=== PATIENT | female | born 1980 | race Caucasian/White ===

== ENCOUNTER → 2016-07-10 | Day surgery (SDC) | payer OTHER ==
[2016-06-23 11:01] VITALS: Ht 167.6 cm; Wt 59.1 kg
[~2016-07-10] VITALS: Ht 167.6 cm; Wt 59.1 kg
[~2016-07-10] MED LIST: ATROPINE SULFATE 0.1 MG/ML 5ML SYR IV PRN; DEXAMETHASONE SOD INJ 4 MG/ML VIAL ONE; EpHEDrine SULFATE INJ 50 MG/ML AMP IV PRN; FENTANYL CITRATE INJ 50 MCG/1 ML 2 ML VIAL IV PRN; FENTANYL CITRATE INJ 50 MCG/1 ML 2 ML VIAL ONE; GLYCOPYRROLATE INJ 0.2 MG/ML VIAL ONE; IBUPROFEN 600 MG TAB PO PRN; KETOROLAC TROMETHAMINE 30 MG/ML VIAL IV. PRN; KETOROLAC TROMETHAMINE 30 MG/ML VIAL ONE; LIDOCAINE HCL 2% 2 ML VIAL (20MG/ML) ONE; MIDAZOLAM HCL 1 MG/ML 2ML VIAL ONE; NEOSTIGMINE METHYLSULFATE 5 MG/5 ML SYR ONE; ONDANSETRON INJ 2 MG/ML 2 ML VIAL IV PRN; ONDANSETRON INJ 2 MG/ML 2 ML VIAL ONE; OXYCODONE/ACETAMINOPHEN 5-325 TAB PO PRN; PROPOFOL IV EMULSION 10 MG/ML 20 ML VIAL IV ONE; ROCURONIUM BROMIDE 10 MG/ML 5 ML VIAL ONE; SODIUM CHLORIDE 0.9% 1000ML 1,000 ML IV SCH
[2016-07-10] MEDS: LACTATED RINGER'S 1000ML 1,000 ML IV SCH ×2 (06:50→08:35)
--- NOTE | 2016-07-10 07:05 | History & Physical Bridge - [place] ---
H&P Re-Evaluation Bridge Note: I have examined the patient, reviewed the History & Physical and in the interval since the performance of the History & Physical I have noted the following changes of clinical significance: No changes noted
--- NOTE | 2016-07-10 08:00 | [facility] Post Operative Brief Note ---
Immediate Operative Summary Operative Date Jul 10, 2016. Pre-Operative Diagnosis Encounter for Sterilization Post-Operative Diagnosis Same Procedure(s) Performed Laparoscopic bilateral Tubal Sterilization via Coagulation Surgeon Dr. Sarabia Hydraulic Dredge Operator Surgeon(s) Dr. Sharma Estimated Blood Loss 0 Findings normal uterus, tubes and ovaries bilaterally. nl liver edge. Fluids (cc crystalloids) 800 Specimens None Drains none Anesthesia general Complication(s) None Disposition Recovery Room / PACU
--- NOTE | 2016-07-10 08:02 | Discharge Instructions ---
Discharge Instructions Date of Service Jul 10, 2016. Admission Reason for Admission: Encounter For Contraceptive Management Discharge Discharge Diagnosis / Problem: status post surgery Discharge Goals Goal(s): Routine recovery after surgery Activity Recommendations Activity Limitations: as noted below . Instructions / Follow-Up Instructions / Follow-Up ACTIVITY RECOMMENDATIONS: * Rest the first 2-3 days. You should be back to your normal activity levels by day 3. * No heavy lifting for 2 weeks. * No intercourse, tampons or douching for 1-2 weeks. * You may shower the next day. * Do not drive anytime that you are taking narcotic pain medicines. RETURN TO SCHOOL/WORK: * May return to school or work after 2-3 days. DIET: Nausea may occur in the immediate post-operative period. If so, take clear liquids such as tea, bouillon, apple juice until all nausea has subsided, then resume usual diet. MEDICATIONS: Resume previous medications unless instructed otherwise by your surgeon. Ibuprofen 200mg 2-3 tablets every 4-6 hours as needed -- OR -- Aleve 2 tablets every 8-12 hours as needed for post-operative discomfort Medications are over the counter. Tylenol may be used if above medications are contraindicated or not preferred. Medication should be taken with food or milk. Do not take on an empty stomach. SPECIAL CARE INSTRUCTIONS: * Check temperature twice daily for one week. report any elevation over 101 degrees. * You may experience some vagina spotting and/or bleeding. This is normal for 1 -2 weeks and should not be heavier than a normal period. If it is unusual in amount, call your physician. * Post-operative discomfort may consist of a sore throat, a "bloated" feeling and pain in the shoulders. these are normal symptoms, which usually only last for 2-3 days. * Remove band-aids tomorrow and shower. There is no need to replace band-aids unless there is drainage or discomfort. FOLLOW UP VISIT: Call your doctor's office for a post-operative visit if needed. You do not need to see me back. Your tubal is immediately effective. You should call me if you are concerned about your incision or any other concerns. Current Hospital Diet Patient's current hospital diet: Discharge Diet Recommended Diet: Regular Diet Procedures Procedures Performed: Laparoscopic bilateral Tubal Sterilization via Coagulation Pending Studies Studies pending at discharge: no Medical Emergencies . Who to Call and When: Medical Emergencies: If at any time you feel your situation is an emergency, please call 911 immediately. . Non-Emergent Contact Non-Emergency issues call your: Tick Sewer . . "Provider Documentation" section prepared by Brit Sarabia. VTE Core Measure Inpt VTE Proph given/why not?: Treatment not indicated
--- NOTE | 2016-07-10 08:11 | Medical Student: [facility] ---
Immediate Operative Summary Operative Date Jul 10, 2016. Pre-Operative Diagnosis Encounter for sterilization Post-Operative Diagnosis Same Procedure(s) Performed Laparoscopic tubal ligation Surgeon Brit Sarabia MD Commercial Construction Superintendent Surgeon(s) Alvaro Sharma MD Estimated Blood Loss 0mL Findings Normal anatomy Fluids (cc crystalloids) 800mL Lactated Ringer's solution Specimens None Drains None Anesthesia General anesthesia with laryngeal mask airway Complication(s) None Disposition Recovery Room / PACU
--- NOTE | 2016-07-10 08:14 | Medical Student: [facility] ---
Immediate Operative Summary Operative Date Jul 10, 2016. Pre-Operative Diagnosis Encounter for sterilization Post-Operative Diagnosis same Procedure(s) Performed Bilateral Laparoscopic Tubal Ligation Surgeon Brit Sarabia MD Costumer Surgeon(s) Alvaro Sharma MD Estimated Blood Loss 0ml Findings Normal Anatomy Fluids (cc crystalloids) 800mL Lactated Ringers Specimens none Drains none Anesthesia General Anesthesia Complication(s) None Disposition Recovery Room / PACU
--- NOTE | 2016-07-10 08:36 | OPERATIVE REPORT ---
DATE OF OPERATION: 07/10/2016 PREOPERATIVE DIAGNOSIS: Desires sterilization. POSTOPERATIVE DIAGNOSIS: Same. PROCEDURE: Bilateral laparoscopic tubal coagulation. SURGEON: Dr. Brit Sarabia. UNIT RECEPTIONIST: Alvaro Sharma, PGY 2. ANESTHESIA: General. IV FLUIDS: 800 mL. ESTIMATED BLOOD LOSS: Zero mL. INDICATIONS: A 35-year-old 2, para 2, has completed her childbearing and desires permanent sterilization. She is aware of all control options and desires to proceed. FINDINGS: Normal uterus, tubes and ovaries bilaterally. Normal liver edge. DESCRIPTION OF PROCEDURE: The patient taken to the operating room and identified. After adequate general anesthesia was obtained, she was placed in the dorsal lithotomy position and prepped and draped in the usual sterile fashion. The bladder was drained of clear, yellow urine. A weighted speculum with anterior retractor used to visualize the cervix which was grasped in its anterior lip with an Allis clamp. An acorn uterine manipulator was gently placed through the cervical os and connected to the Allis clamp to allow for uterine manipulation. Attention was then turned to the patient's abdomen where an infraumbilical skin incision was made with a scalpel. The Veress needle was placed intraperitoneally with an opening pressure of 1 mmHg. A CO2 pneumoperitoneum was created. A 11 mm optical trocar was placed intraperitoneally and the patient was placed in steep Trendelenburg. The operative laparoscope was then used and a blunt probe was used to tease the bowel away from the planned operative sites. The right fallopian tube was followed to its fimbriated end and coagulated in approximately a 3 cm segment 2-3 cm from the right cornu. This was using a Kleppinger forceps with an impedance monitor. The left fallopian tube was identified in a similar fashion and coagulated in a similar fashion. The pelvis and abdomen were inspected with the findings noted above. At this point the procedure was terminated. The patient was returned to flat positioning and the CO2 gas was allowed to escape from the abdomen. The skin incision was reapproximated subcutaneously with the single interrupted suture of 0 Vicryl followed by subcuticular stitches of 4-0 Vicryl. The vaginal instruments were removed. The patient was returned to the supine position. She was awoken from anesthesia and transferred to the recovery room in stable condition. All sponge, lap and needle counts were correct x2. I attest to the content of the Intraoperative Record and any orders documented therein. Any exceptions are noted below. MTDD
[2016-07-10 08:51] VITALS: TEMP 36.3
[2016-07-10 09:18] VITALS: BP 99/62; PULSE 47; O2SAT 99
--- NOTE | 2016-07-10 09:23 | Anesthesia Progress Nt - [facility] ---
Anesthesia Post Op Note Date & Time Jul 10, 2016 at 09:23 Vital Signs Pain Intensity: 4 Vital Signs Past 12 Hours Date Time Temp Pulse Resp B/P Pulse Ox O2 Delivery O2 Flow Rate FiO2 07/10/16 09:18 47 16 99/62 99 Room Air 07/10/16 08:51 36.3 51 16 109/67 99 Room Air 07/10/16 08:46 46 7 109/74 97 07/10/16 08:46 46 7 07/10/16 08:42 36.3 49 12 109/48 97 Room Air 07/10/16 08:41 52 17 07/10/16 08:41 52 17 97/79 98 07/10/16 08:36 49 7 108/74 95 07/10/16 08:36 50 7 07/10/16 08:31 47 4 07/10/16 08:31 47 4 111/77 98 07/10/16 08:26 46 15 113/80 100 07/10/16 08:26 47 15 07/10/16 08:21 52 13 116/83 100 07/10/16 08:21 52 13 07/10/16 08:16 56 15 07/10/16 08:16 56 15 118/84 100 07/10/16 08:11 60 17 07/10/16 08:11 60 17 115/84 100 07/10/16 08:07 131/96 07/10/16 08:06 87 07/10/16 08:06 87 99 07/10/16 08:06 36.6 85 16 131/96 100 Diffusion Mask 07/10/16 06:36 36.6 72 16 115/80 99 Room Air Notes Mental Status: alert / awake / arousable, participated in evaluation Pt Amnestic to Procedure: Yes Nausea / Vomiting: adequately controlled Pain: adequately controlled Airway Patency, RR, SpO2: stable & adequate BP & HR: stable & adequate Hydration State: stable & adequate Anesthetic Complications: no major complications apparent
== END | disposition home or self-care (01) ==
LOC: X.SURG 06:28
PROVIDERS: ATTEND Obstetrics & Gynecology
DX: Z30.2 Encounter for sterilization (principal)

== ENCOUNTER → 2016-12-18 | Outpatient (CLI) | payer OTHER | END | disposition home or self-care (01) | LOC: C.LABSPEC 13:29 | PROVIDERS: ATTEND Physician Assistant | DX: L29.8 Other pruritus (principal) ==

== ENCOUNTER 2017-05-30 18:04 | Emergency (ER) | payer OTHER ==
[2017-05-30 18:09] VITALS: TEMP 36.8; Ht 165.1 cm
[2017-05-30] MEDS ORDERED: OXYCODONE HCL IR 5 MG TAB (IMMEDIATE RELEASE) PO STA (18:46)
[2017-05-30] MEDS ORDERED: OXYC1TAB3 PO (18:50)
--- NOTE | 2017-05-30 18:52 | EMERGENCY ROOM VISIT NOTE ---
ED Visit Note First contact with patient: 18:11 CHIEF COMPLAINT: Right ankle injury 90 minutes ago HISTORY OF PRESENT ILLNESS: Patient is a healthy 36-year-old white female who presents to the Emergency Department today accompanied by family for evaluation of a right ankle injury that occurred about 90 minutes ago while sled riding. Patient states that she went over a jump, and when she came down, her leg was underneath the sled and she landed on it. She had immediate onset of pain in her right ankle. She was pulled out on the sled, and has not put any weight on the ankle since the injury. She went home, elevated the ankle, tried to apply ice which she could not tolerate, and took ibuprofen and tramadol. She rates her pain a 9/10. She denies any foot or knee pain. No numbness or weakness of the foot. REVIEW OF SYSTEMS: Review of systems as per HPI. All other systems reviewed were negative. At least 6 systems reviewed. PMH: Electronic medical records are reviewed and summarized as above/below. See Problem List. SOCIAL HISTORY: Patient lives at home with her children. Employed. Nonsmoker. PHYSICAL EXAM: Vital Signs: Reviewed Nurses' notes. MENTAL STATUS: Well- appearing 36-year-old white female who is awake and alert and seated in a wheelchair. MUSCULOSKELETAL: Examination of the right ankle show marked soft tissue swelling , with palpable ankle joint effusion. She is tender over the entire ankle both medially and laterally. The range of motion is limited because of the pain and swelling. No deformity. There is no pain over the proximal fibular head or the fifth metatarsal. SKIN: Normal. NEUROVASCULAR: Sensation intact to pain and light touch, foot is warm and well-perfused, dorsalis pedis pulse is palpable. EMERGENCY DEPARTMENT COURSE: The patient was seen and assessed as above. Her old records were reviewed. Right ankle x-rays were obtained and consistent with a trimalleolar fracture with mortise widening. Patient was medicated with oxycodone 10 mg orally. She is placed in a short leg posterior and sugar tong Ortho-Glass splint. She was fitted with crutches and instructed on a nonweight bearing gait. She was referred to [facility] for further care and evaluation. Differential diagnosis included fracture, sprain, dislocation, contusion, among others. Medication reconciliation: I attest that I have personally reviewed the patient' s current medication list. Blood pressure screening : Patient was found to have normal blood pressure on screening and does not require follow-up. Patient was reviewed in the [facility] Prescription Drug Monitoring Program, and there were no red flags noted. RIGHT ANKLE 3 VIEWS HISTORY: Right ankle pain. COMPARISON: None. FINDINGS: There is no oblique distal fibular fracture was demonstrated up to 6 mm of posterior displacement. Diffuse soft tissue swelling. There is also a fracture through the medial malleolus which demonstrates up to 4 mm of distraction and 3 mm of medial displacement. There are slight widening of the ankle mortise. There appears to be in a nondisplaced fracture through the posterior malleolus. No radiopaque foreign bodies. IMPRESSION: Trimalleolar right ankle fracture as described above with mild widening of the ankle mortise. Problem List Medical Problems: (1) Intrauterine Status: Resolved (2) Vaginal delivery Status: Resolved Surgical Problems: (1) H/O tubal ligation Status: Resolved (2) H/O wisdom tooth extraction Status: Resolved Current/Historical Medications Scheduled PRN Oxycodone Ir (Roxicodone Ir), 1-2 TAB PO Q4H PRN for Severe Pain Allergies Coded Allergies: No Known Allergies (Verified , 05/30/17) Vital Signs Date Time Temp Pulse Resp B/P (MAP) Pulse Ox O2 Delivery O2 Flow Rate FiO2 05/30/17 19:11 78 20 126/73 100 05/30/17 18:09 36.8 90 20 114/63 97 Room Air Medications Administered Medications (Trade) Dose Ordered Sig/Sindy Route Start Time Stop Time Status Last Admin Dose Admin Oxycodone HCl (Roxicodone Immediate Rel Tab) 10 mg NOW STAT PO 05/30/17 18:46 05/30/17 18:52 DC 05/30/17 18:52 10 MG Departure Information Impression Primary Impression: Trimalleolar fracture of right ankle Prescriptions Oxycodone Ir (Roxicodone Ir) 5 Mg Tab 1-2 TAB PO Q4H Y for Severe Pain, #30 TAB For Initial Treatment Prov: Aparna Starr PA 05/30/17 Referrals Lb Garcia M.D. (PCP) Rogerio Contreras, DO Patient Instructions [facility] Additional Instructions DO NOT drive, drink alcohol, operate machinery, or perform dangerous activities today. You were given medications in the ER that can affect your ability to safely function or operate a vehicle. Oxycodone (OxyIR) 5mg: Take 1-2 pills every four hours for breakthrough pain. Avoid alcohol, operating machinery or dangerous equipment, working on ladders or roofs, DRIVING, or situations where being under the influence may be dangerous. It is recommended to use an hjvs-zfw-ytyihuo stool softener such as Colace, 100mg twice daily while taking this medication to avoid constipation. Ibuprofen(Motrin, Advil) may be used for fever or pain. Use 600mg every six hours as needed. Take with food. Avoid using more than 2400mg in a 24 hour period. Do not use 2400mg per day for more than three consecutive days without physician direction. Prolonged inappropriate use can lead to stomach upset or ulcers. This medication can be taken if you need to drive, work, or perform activities which may be dangerous when taking narcotic pain medication. (AND/OR) Acetaminophen(Tylenol) may be used for fever or pain. Use 1000mg every six hours as needed. Avoid using more than 3000mg in a 24 hour period. This medication can be taken if you need to drive, work, or perform activities which may be dangerous when taking narcotic pain medication. Ice compresses for 20 minutes at a time four times daily for 2-3 days. Use the crutches as instructed with no weight on the right ankle. Rest and elevate your injury. Prop your right ankle on at least 2 pillows above the level of the heart to help reduce pain and swelling. Do not get the splint wet. If your splint feels excessively tight, you have worsening pain, develop numbness or tingling, or your digits appear blue, loosen the anderson wrap. Then reapply the anderson wrap gently without removing the splint. If your symptoms are not quickly relieved return to the ER for re- evaluation. Continue current medications. Return to the ER immediately for any numbness, tingling, severe pain, extreme swelling in the extremity or as needed. Call [facility] tomorrow to arrange follow up for your injury. Problem Qualifiers Primary Impression: Trimalleolar fracture of right ankle Encounter type: initial encounter Fracture type: closed Qualified Codes: S82.851A - Displaced trimalleolar fracture of right lower leg, initial encounter for closed fracture
[2017-05-30 19:11] VITALS: BP 126/73; PULSE 78; O2SAT 100
--- NOTE | 2017-05-30 19:23 | DIAGNOSTIC IMAGING REPORT ---
RIGHT ANKLE 3 VIEWS HISTORY: Right ankle pain. COMPARISON: None. FINDINGS: There is no oblique distal fibular fracture was demonstrated up to 6 mm of posterior displacement. Diffuse soft tissue swelling. There is also a fracture through the medial malleolus which demonstrates up to 4 mm of distraction and 3 mm of medial displacement. There are slight widening of the ankle mortise. There appears to be in a nondisplaced fracture through the posterior malleolus. No radiopaque foreign bodies. IMPRESSION: Trimalleolar right ankle fracture as described above with mild widening of the ankle mortise. Electronically signed by: Damian Lara M.D. 05/30/2017 7:21 PM Dictated Date/Time: 05/30/2017 7:19 PM
[2017-05-31] MEDS ORDERED: IBUP-1450 PO (13:21)
[2017-05-31] MEDS ORDERED: MULT-506 PO (13:21)
[2017-05-31] MEDS ORDERED: OXYC15TA89 PO (13:21)
== END 2017-05-30 19:20 | disposition home or self-care (01) ==
LOC: C.EDB 18:05 → C.EDD 19:20
DX: S82.851A Displaced trimalleolar fracture of right lower leg, initial encounter for closed fracture (principal); W20.8XXA Other cause of strike by thrown, projected or falling object, initial encounter; Y93.23 Activity, snow (alpine) (downhill) skiing, snowboarding, sledding, tobogganing and snow tubing

== ENCOUNTER 2017-06-01 12:00 | Day surgery (SDC) | payer OTHER ==
[2017-05-31 13:22] VITALS: BMI 22.0
--- NOTE | 2017-05-31 21:49 | HISTORY & PHYSICAL EXAMINATION ---
DATE OF ADMISSION: 06/01/2017 CHIEF COMPLAINT: Right ankle injury. HISTORY OF PRESENT ILLNESS: The patient is a 36-year-old very active, healthy female who sustained an injury to her ankle last evening. She was out sled riding went over a jump and landed on her right ankle. He had acute onset of pain and could not walk on it afterwards. She was brought to the Emergency Room. X-rays revealed a right trimalleolar ankle fracture. She was splinted and referred to our clinic this morning. No other complaints. She describes global ankle pain. No history of ankle problems in the past. PAST MEDICAL HISTORY: Noncontributory. PAST SURGICAL HISTORY: Include: 1. Tarpley teeth extraction. 2. Tubal ligation. ALLERGIES: None. CURRENT MEDICATIONS: Oxycodone. SOCIAL HISTORY: A 36-year-old female. She is . Two children. No alcohol intake. Does not smoke. FAMILY HISTORY: Noncontributory. REVIEW OF SYSTEMS: Negative for diabetes, neurologic problems, vascular problems or bleeding disorders. No head injury. No loss of consciousness, no neck pain, no back pain. PHYSICAL EXAMINATION: GENERAL: Reveals a healthy, pleasant middle-aged female. Looks to be in excellent health. HEENT: Benign. NECK: Supple. No lymphadenopathy. LUNGS: Clear to auscultation. HEART: Has a regular rate and rhythm. ABDOMEN: Soft, nontender, nondistended. EXTREMITIES: Grossly neurovascularly intact except as follows: Examination of the right ankle with the splint removed reveals some moderate swelling. Her ankle looks well aligned. There is no fracture blisters. She can dorsiflex and plantarflex her toes appropriately. She has brisk refill. X-RAYS: X-ray of the ankle were reviewed. She has a right trimalleolar ankle fracture. Minimal displacement of the talus. There is some slight shifting. The medial malleolus is displaced significantly. ASSESSMENT: A 36-year-old female with a right trimalleolar ankle fracture. This is certainly something best treated surgically. PLAN: We talked about treatment options. We are going to proceed with ORIF of right ankle fracture. The risks and benefits of this procedure were explained to the patient including but not limited to DVT, PE, , infection, neurological injury, vascular injury, bleeding problems, pain, limited range of motion, stiffness, nonunion, malunion progressive arthritis, need for further surgery in the future and hardware removal. The patient understands and desires to proceed. Informed consent was obtained.
[~2017-06-01] VITALS: Ht 165.1 cm; Wt 61.4 kg
[~2017-06-01 12:00] MED LIST changes: -ATROPINE SULFATE 0.1 MG/ML 5ML SYR IV PRN; +CEFAZOLIN IV 2,000 MG in SYRINGE 0 ML IV SCH; -DEXAMETHASONE SOD INJ 4 MG/ML VIAL ONE; -EpHEDrine SULFATE INJ 50 MG/ML AMP IV PRN; -FENTANYL CITRATE INJ 50 MCG/1 ML 2 ML VIAL IV PRN; -FENTANYL CITRATE INJ 50 MCG/1 ML 2 ML VIAL ONE; -GLYCOPYRROLATE INJ 0.2 MG/ML VIAL ONE; +IBUP-1450 PO; -IBUPROFEN 600 MG TAB PO PRN; -KETOROLAC TROMETHAMINE 30 MG/ML VIAL IV. PRN; -KETOROLAC TROMETHAMINE 30 MG/ML VIAL ONE; +LACTATED RINGER'S 1000ML 1,000 ML IV SCH; -LIDOCAINE HCL 2% 2 ML VIAL (20MG/ML) ONE; -MIDAZOLAM HCL 1 MG/ML 2ML VIAL ONE; +MULT-506 PO; -NEOSTIGMINE METHYLSULFATE 5 MG/5 ML SYR ONE; +NSS 1000ML IV SCH; -ONDANSETRON INJ 2 MG/ML 2 ML VIAL IV PRN; -ONDANSETRON INJ 2 MG/ML 2 ML VIAL ONE; +OXYC15TA89 PO; -OXYCODONE/ACETAMINOPHEN 5-325 TAB PO PRN; -PROPOFOL IV EMULSION 10 MG/ML 20 ML VIAL IV ONE; -ROCURONIUM BROMIDE 10 MG/ML 5 ML VIAL ONE; -SODIUM CHLORIDE 0.9% 1000ML 1,000 ML IV SCH
[2017-06-01 12:32] VITALS: BP 112/71; PULSE 73; TEMP 37.1; O2SAT 98; Ht 165.1 cm; Wt 61.4 kg
[2017-06-01] MEDS ORDERED: FENTANYL CITRATE INJ 50 MCG/1 ML 2 ML VIAL ONE (12:55)
[2017-06-01] MEDS ORDERED: MIDAZOLAM HCL 1 MG/ML 2ML VIAL ONE (12:55)
[2017-06-01] MEDS ORDERED: CEFAZOLIN SOD 1000MG/7.5 ML IV PUSH IV ONE ×2 (12:59→17:34)
[2017-06-01] MEDS ORDERED: DEXAMETHASONE SOD INJ 4 MG/ML VIAL ONE (13:20)
[2017-06-01] MEDS ORDERED: LIDOCAINE HCL 2% 2 ML VIAL (20MG/ML) ONE (13:20)
[2017-06-01] MEDS ORDERED: ONDANSETRON INJ 2 MG/ML 2 ML VIAL ONE (13:20)
[2017-06-01] MEDS ORDERED: PROPOFOL IV EMULSION 10 MG/ML 20 ML VIAL IV ONE (13:20)
[2017-06-01] MEDS ORDERED: BUPIVACAINE 0.5 % 5 MG/1 ML PF 10ML VIAL ONE (13:58)
[2017-06-01] MEDS ORDERED: BUPIVACAINE 0.25% 30 ML VIAL ONE (13:59)
[2017-06-01] MEDS ORDERED: BUPIVACAINE/EPINEPHRINE 0.5% MPF 1:200,000 30 ML VIAL ONE (14:12)
[2017-06-01] MEDS ORDERED: BACITRACIN 50000 UNIT VIAL ONE (14:12)
[2017-06-01] MEDS ORDERED: HYDROmorphone INJ 1 MG/ML SYR IV PRN (14:45)
[2017-06-01] MEDS ORDERED: EpHEDrine SULFATE INJ 50 MG/ML AMP IV PRN (14:45)
[2017-06-01] MEDS ORDERED: ATROPINE SULFATE 0.1 MG/ML 5ML SYR IV PRN (14:45)
[2017-06-01] MEDS ORDERED: FENTANYL CITRATE INJ 50 MCG/1 ML 2 ML VIAL IV PRN (14:45)
[2017-06-01] MEDS ORDERED: ONDANSETRON INJ 2 MG/ML 2 ML VIAL IV PRN (14:45)
[2017-06-01] MEDS ORDERED: PROMETHAZINE HCL INJ 12.5 MG in SODIUM CHLORIDE 0.9% 50ML 50 ML IV PRN (14:45)
--- NOTE | 2017-06-01 16:32 | [facility] Post Operative Brief Note ---
Immediate Operative Summary Operative Date Jun 01, 2017. Pre-Operative Diagnosis right trimalleolar ankle fracture Post-Operative Diagnosis right trimalleolar ankle fracture Procedure(s) Performed Open Reduction Internal Fixation Right Trimalleolar Ankle Surgeon Dr. Lennon Clerk Telegraph Service Surgeon(s) Nuno Guaman PA-C Estimated Blood Loss 20 ml Findings Consistent with Post-Op Diagnosis Fluids (cc crystalloids) 1200 cc Specimens none per surgeon Drains None Anesthesia Type General Regional Disposition Accompanied Pt To Recover: yes Disposition: Recovery Room / PACU
[2017-06-01] MEDS ORDERED: SODIUM CHLORIDE 0.9% 1000ML 1,000 ML IV SCH (16:33)
--- NOTE | 2017-06-01 16:33 | DIAGNOSTIC IMAGING REPORT ---
R ANKLE 2 VIEWS CLINICAL HISTORY: 36 years-old Female presenting with RT ORIF TRIMALLEOLAR FX. TECHNIQUE: 4 fluoroscopic spot image(s) obtained as part of an intraoperative procedure. COMPARISON: 05/30/2017. FINDINGS/IMPRESSION: There has been interval 2 lag screw fixation of the medial malleolus as well as cortical compression plate and screw fixation of the distal fibula. A lag screw is also noted through the distal fibula at the level of the syndesmosis. Ankle mortise has been restored. No significant displacement of the posterior malleolus. Please see surgical report for further details. Fluoroscopy dosage (mGy): 0.56. Fluoroscopy time: 18.9 seconds. Number of fluoroscopic spot images: 4. Electronically signed by: Jack Pedraza M.D. 06/01/2017 4:32 PM Dictated Date/Time: 06/01/2017 4:30 PM
[2017-06-01] MEDS ORDERED: ASPEC325 PO (16:37)
--- NOTE | 2017-06-01 16:39 | Discharge Instructions ---
Discharge Instructions Date of Service Jun 01, 2017. Admission Reason for Admission: Closed Ankle Fracture Discharge Discharge Diagnosis / Problem: RIGHT ANKLE FRACTURE Discharge Goals Goal(s): Therapeutic intervention Activity Recommendations Activity Limitations: per Instructions/Follow-up section Weightbearing Status: Right non-weightbearing . Instructions / Follow-Up Instructions / Follow-Up MEDICATIONS: * Resume previous medications unless instructed otherwise by your surgeon. * Always take pain medication on a full stomach or with food to avoid upset stomach. * Do not drink alcohol or drive while taking narcotics. * Ibuprofen or Tylenol may be taken if narcotic not needed. SPECIAL CARE INSTRUCTIONS: __ None _X_ Keep extremity elevated and iced x 48 hours; apply ice 20-30 minutes 8-10 times/day. May remove at night. _X_ Crutches __ May discard when able __ Brace/Post-op shoe __ 24 hrs/day __ Remove at night _X_ Dressing _X_ Maintain until seen in office, may shower with plastic over site __ Remove dressings in 24-48 hours and then may shower __ Cover incisions with band-aids after showering __ Do not remove steri-strips Call physician if chills or temperature rises above 102 degrees or pain unrelieved by prescribed pain medications. Office [phone] FOLLOW UP IN 2 WEEKS Current Hospital Diet Patient's current hospital diet: Discharge Diet Recommended Diet: Regular Diet Procedures Procedures Performed: Open Reduction Internal Fixation Right Trimalleolar Ankle Pending Studies Studies pending at discharge: no Medical Emergencies . Who to Call and When: Medical Emergencies: If at any time you feel your situation is an emergency, please call 911 immediately. . Non-Emergent Contact Non-Emergency issues call your: Surgeon . "Provider Documentation" section prepared by Nick Guaman. . VTE Core Measure Inpt VTE Proph given/why not?: Other Anticoagulation (ASPIRIN 325MG TWICE/DAY )
[2017-06-01] MEDS ORDERED: OXYCODONE/ACETAMINOPHEN 5-325 TAB PO PRN ×2 (16:45)
[2017-06-01] MEDS ORDERED: CEFAZOLIN IV 1,000 MG in DEXTROSE 5% 50ML 50 ML IV SCH (16:45)
--- NOTE | 2017-06-01 17:12 | Anesthesiology Progress Note ---
Anesthesia Post Op Note Date & Time Jun 01, 2017 at 17:12 Vital Signs Pain Intensity: 1 Vital Signs Past 12 Hours Date Time Temp Pulse Resp B/P (MAP) Pulse Ox O2 Delivery O2 Flow Rate FiO2 06/01/17 16:31 36.3 80 16 120/65 100 Oxymask 7 06/01/17 12:32 37.1 73 16 112/71 (85) 98 Room Air Notes Mental Status: alert / awake / arousable, participated in evaluation Pt Amnestic to Procedure: Yes Nausea / Vomiting: adequately controlled Pain: adequately controlled Airway Patency, RR, SpO2: stable & adequate BP & HR: stable & adequate Hydration State: stable & adequate Anesthetic Complications: no major complications apparent
[2017-06-01 17:20] VITALS: BP 137/69; PULSE 80; TEMP 36.9; O2SAT 98
[2017-06-01 17:50] VITALS: BP 116/70; PULSE 78; TEMP 37.2; O2SAT 98
[2017-06-01 18:20] VITALS: BP 112/64; PULSE 76; TEMP 37.4; O2SAT 98
--- NOTE | 2017-06-01 20:05 | OPERATIVE REPORT ---
DATE OF OPERATION: 06/01/2017 SURGEON: Niko Lennon MD. [facility] SOLUTION ARCHITECT: ALTON May. PREOPERATIVE DIAGNOSIS: Right trimalleolar ankle fracture. POSTOPERATIVE DIAGNOSIS: Same. PROCEDURE PERFORMED: Open reduction internal fixation right trimalleolar ankle fracture. TOURNIQUET TIME: 64 minutes. ESTIMATED BLOOD LOSS: 20 mL. FLUID REPLACEMENT: 1500 mL crystalloid fluid replacement. ANESTHESIA: General with popliteal block. SPECIMENS: None. OPERATIVE INDICATIONS: The patient is a 36-year-old female who injured her ankle 2 days ago while she was sled riding. She apparently went over a jump, fell off a sled and landed on her ankle. She had acute onset of pain and could not walk. She was brought to the Emergency Room. X-rays revealed a trimalleolar ankle fracture. The patient indicated for surgical fixation. OPERATIVE IMPLANTS: Medial side implants consisted of: 1. A 4.0 partially threaded cannulated Synthes screw with long thread length with a washer. 2. A 4.0 partially threaded cannulated screw with a long thread length without a washer. Lateral side implants consisted of: 1. A Synthes 8-hole stainless steel semitubular plate. 2. A 3.5 mm fully threaded cortical screws x5. 3. A 4.0 fully threaded cancellous screws x2. OPERATIVE PROCEDURE: The patient was then brought to the operating room and placed on the operating table in supine position. All contact areas were meticulously padded. A general anesthetic was implemented by anesthesia team. The patient did receive preoperative antibiotics. Right thigh tourniquet was then placed. The right ankle splint was then removed. The right foot was then scrubbed with Hibiclens and prepped with ChloraPrep and draped in usual sterile fashion. The right leg was elevated and exsanguinated with Esmarch and tourniquet was placed at 300 mmHg. A direct approach to the medial malleolus was then performed through a curvilinear incision. Sharp dissection was carried through the subcutaneous tissue directly down to the fracture site. There was quite a bit of hemorrhage in the fracture site. We irrigated this pretty extensively. This fragment was fairly mobile, so I elected to approach the fibula and fixed this to provide some stabilizing effect. A direct lateral approach to the fibula was then performed through a longitudinal incision over the border of the fibula. Sharp dissection was carried out through the subcutaneous tissues directly down to the fibula. Several branches of the superficial peroneal nerve were identified and protected throughout the case particularly one significant branch posteriorly. The fracture site was identified. Once again there was quite a bit of blood clot in this as well. We irrigated this out extensively. I then reduced this and held it with reduction clamp. I then approached the medial side again. The medial side was then approached and the medial malleolus fragment was reduced to the tibia. It was held with reduction clamp. I placed 2 guidewires across the fracture site. I felt like I could get 2 good screws so we elected to place 2 partially threaded cannulated screws over top of each of the guidewires. The posterior one had a washer over top to maximize soft tissue decompression. X-ray was brought in. The position was verified. Attention was then drawn to the lateral side. The lateral fibula was held reduced. I placed a single 3.5 fully threaded cortical lag screw from anterior to posterior across the fracture site. I then contoured an 8-hole 1/3 semitubular plate to the lateral aspect of the fibula. It was fixed proximally with five 3.5 fully threaded cortical screws and distally with two 4.0 fully threaded cancellous screws. I did leave 1 hole open as it went right across the fracture site. X-ray was brought in. All screw lengths where appropriate. I stressed the ankle and there were no signs of any gapping in the mortise. Attention was then drawn toward closing. Closed wounds were then irrigated extensively. I did inject locally with 30 mL of 0.5% Marcaine with epinephrine. The periosteum of the lateral fibular plate was then closed with 0 Vicryl suture in [id number] fashion. I then let the tourniquet down for a total tourniquet time of 64 minutes. Hemostasis was assured with use of electrocautery. The wound was once again irrigated. The subcutaneous tissues of both wounds were then closed with 2-0 Dexon suture in a buried interrupted fashion. The skin was then closed with 3-0 nylon suture in a simple fashion. The leg was then cleaned and dried and a sterile dressing of Xeroform, 4 x 4, sterile cast padding and a well-padded posterior and stirrup splint were applied. The patient then brought out of general anesthesia and transferred to the recovery room in stable condition. The patient tolerated the procedure with no complications. All needle and sponge counts were correct at the end of the operation. I attest to the content of the Intraoperative Record and any orders documented therein. Any exceptions are noted below. MTDD
[2017-06-02] MEDS ORDERED: CEFAZOLIN IV 2,000 MG in SYRINGE 0 ML IV SCH (06:00)
== END 2017-06-01 18:25 | disposition home or self-care (01) ==
LOC: C.ACU 12:00
PROVIDERS: ATTEND Orthopaedic Surgery Sports Medicine
DX: S82.851A Displaced trimalleolar fracture of right lower leg, initial encounter for closed fracture (principal); W20.8XXA Other cause of strike by thrown, projected or falling object, initial encounter; Y93.23 Activity, snow (alpine) (downhill) skiing, snowboarding, sledding, tobogganing and snow tubing